=== PATIENT | female | born 1980 | race Two or more races ===

== ENCOUNTER 2024-05-04 00:12 | Inpatient (IN) | payer SELFPAY ==
[2024-05-04] MEDS ORDERED: Calcium Carbonate 500 MG ChewTAB PO PRN (01:48)
[2024-05-04] MEDS ORDERED: Ondansetron ODT 4 MG TAB PO PRN (01:48)
[2024-05-04] MEDS ORDERED: Acetaminophen 650 MG Suppository PR PRN (01:48)
[2024-05-04] MEDS: Lactated Ringer's 1,000 ML IV SCH (02:29)
[2024-05-04 03:03] VITALS: BMI 25.7
[2024-05-04 03:56] LABS: Pregnancy Test - Urine (BHCG) Negative (Negative); Pregu Control Background? CLEAR/WHITE (CLR/WHITE); Pregu Control Bar Appear? YES (CONTROL BAR); Specific Gravity 1.009 (1.002-1.036)
[2024-05-04 04:13] LABS: Hematocrit 31.7 % (36.0-47.0); Hemoglobin 11.4 g/dL (12.0-16.0); Mean Corpuscular Hemoglobin 32.2 pg (27.0-31.0); Mean Corpuscular Volume 89.5 fL (78.0-98.0); Mean Platelet Volume 12.3 fL (7.4-10.4); Platelet Count 40 10x3/uL (130-400); RBC Distribution Width 11.5 % (11.5-14.5); Red Blood Cell (RBC) Count 3.54 mill/uL (4.20-5.40)
[2024-05-04] MEDS: Acetaminophen 325 MG TAB PO PRN (04:25)
[2024-05-04 04:30] LABS: Lactic Acid 2.22 mmol/L (0.50-2.20)
[2024-05-04 04:43] LABS: Anion Gap 15 mmol/L (10-20); Chloride 101 mmol/L (98-107); Potassium 3.7 mmol/L (3.5-5.1); Sodium 129 mmol/L (136-145)
[2024-05-04 04:48] LABS: ALT (SGPT) 51 U/L (Less than 34); AST (SGOT) 92 U/L (11-34); Albumin 1.9 g/dL (3.1-4.5); Alkaline Phosphatase 229 U/L (40-110); BUN (Urea Nitrogen) 49 mg/dL (7.0-18.7); Bilirubin, Total 1.6 mg/dL (0.3-1.2); Calc. Creatinine Clearance 31 mL/min (70-130); Calcium 6.5 mg/dL (7.8-10.44); Carbon Dioxide 18 mmol/L (22-29); Estimated GFR 24; Globulin 2.6 g/dL (2.4-3.5); Glucose 112 mg/dL (70-105); Protein, Total 4.5 g/dL (6.0-8.3)
[2024-05-04 04:50] LABS: HBsAg Index 0.22 S/CO (0-0.99); Hep A IgM AB NONREACTIVE (NonReactive); Hep A IgM S/CO 0.23 S/CO (0-0.79); Hep B Surf Ag NONREACTIVE S/CO (NonReactive); Hep C IgG Ab NONREACTIVE S/CO (NonReactive); Hep C Index 0.07 S/CO (0-0.79); Hepatitis B Core IgM Abs NONREACTIVE S/CO (NonReactive)
[2024-05-04 05:12] LABS: Band 7 % (5-11); Lymphocytes 2 % (21-51); Neutrophil 91 % (42-75); Platelet Adequacy Comment Platelets Decreased; RBC Morphology Within Normal Limits; Smudge Cells 14.1 %
[2024-05-04] MEDS: Albumin 25% 25 GM (100 mL) BOT IVPB SCH ×2 (05:14)
[2024-05-04] MEDS ORDERED: Electrolyte Replacement Protocol 1 EACH FS ONE (08:27)
[2024-05-04] MEDS ORDERED: Electrolyte Replacement Protocol FS PRN (08:45)
[2024-05-04] MEDS: Sodium Chloride 0.9% 1,000 ML IV SCH ×2 (09:11→20:33)
[2024-05-04] MEDS: Cefepime 1 GM in Sodium Chloride 0.9% 100 ML IVPB SCH (09:19)
[2024-05-04] MEDS: busPIRone HCl 5 MG TAB PO SCH (09:27)
[2024-05-04] MEDS: Famotidine 20 MG TAB PO SCH (09:27)
[2024-05-04] MEDS: Famotidine/PF 20 mg/2ml Vial SLOW IVP SCH (09:28)
[2024-05-04 10:29] LABS: Bilirubin Negative (Negative); Blood, Urine 2+ (Negative); Clarity Clear (Clear); Glucose, Urine (Dipstick) Normal (Negative); Ketone, Urine Negative (Negative); Leukocyte Negative Leu/uL (Negative); Nitrite Negative (Negative); Protein, Urine (Dipstick) 20 mg/dL (Neg-Trace); RBC/HPF 0-3 HPF (0-3); Specific Gravity, Urine 1.008 (1.002-1.036); Squamous Epithelial None Seen HPF (0-3); Urobilinogen Normal mg/dL (Less than 2); pH, Urine 5.5 (5.0-9.0)
[2024-05-04 10:32] LABS: Bacteria/HPF 1+ HPF (None Seen)
[2024-05-04] MEDS: CALCIUM GLUC 1 GM/NS 50 ML 1 GM in Premix 1 BAG IVPB SCH (12:46)
[2024-05-04 18:05] LABS: Lactic Acid 2.87 mmol/L (0.50-2.20)
[2024-05-04] MEDS ORDERED: Heparin 5,000 UNITS/ML VIAL SC SCH (21:00)
[2024-05-05 04:56] LABS: Hematocrit 26.3 % (36.0-47.0); Hemoglobin 9.4 g/dL (12.0-16.0); Mean Corpuscular HGB CONC 35.7 g/dL (32.0-36.0); Mean Corpuscular Hemoglobin 32.2 pg (27.0-31.0); Mean Corpuscular Volume 90.1 fL (78.0-98.0); Mean Platelet Volume 11.7 fL (7.4-10.4); Platelet Count 30 10x3/uL (130-400); RBC Distribution Width 12.1 % (11.5-14.5); Red Blood Cell (RBC) Count 2.92 mill/uL (4.20-5.40)
[2024-05-05 05:14] LABS: Anion Gap 11 mmol/L (10-20); BUN (Urea Nitrogen) 26 mg/dL (7.0-18.7); Calc. Creatinine Clearance 69 mL/min (70-130); Calcium 7.1 mg/dL (7.8-10.44); Carbon Dioxide 17 mmol/L (22-29); Chloride 107 mmol/L (98-107); Estimated GFR 64; Glucose 115 mg/dL (70-105); Potassium 3.3 mmol/L (3.5-5.1); Sodium 132 mmol/L (136-145)
[2024-05-05 05:31] LABS: HBsAg Index 0.18 S/CO (0-0.99); Hep B Surf Ag NONREACTIVE S/CO (NonReactive); Hep C IgG Ab NONREACTIVE S/CO (NonReactive); Hep C Index 0.29 S/CO (0-0.79)
[2024-05-05 05:36] LABS: Band 1 % (5-11); Large Platelets 2.9 % (0-5); Lymphocytes 9 % (21-51); Monocytes 2 % (0-10); Neutrophil 88 % (42-75); Platelet Adequacy Comment Platelets Decreased; Polychromasia SLIGHT = 2-3 cells HPF (0-2); Smudge Cells 16.7 %
[2024-05-05] MEDS: Melatonin 3 MG TAB PO SCH (05:37)
[2024-05-05] MEDS: Benzonatate 100 MG CAP PO PRN (09:00)
[2024-05-05] MEDS: guaiFENesin ER 600 MG TAB PO SCH (09:00)
[2024-05-05] MEDS: Potassium Chloride 20 MEQ TAB PO SCH (09:00)
[2024-05-05] MEDS: 1/2 NS w/Potassium 20 mEq 1,000 ML IV SCH (09:02)
[2024-05-05] MEDS: FLU (Fluarix Triv) TS24-25(6MOS UP)/PF 45 MCG/0.5 ML Syringe IM ONE (09:07)
[2024-05-05 13:54] LABS: Potassium 3.9 mmol/L (3.5-5.1)
[2024-05-05] MEDS: guaiFENesin/Codeine 200 mg/20 mg 10 ml Cup PO PRN (14:07)
[2024-05-05] MEDS ORDERED: Iopamidol-370 76% 500 ML MDV (1 ML CHARGE) ONE (14:12)
[2024-05-05] MEDS: Cefepime 1 GM in Sodium Chloride 0.9% 100 ML IVPB SCH (20:48)
[2024-05-06 05:05] LABS: Hematocrit 29.3 % (36.0-47.0); Hemoglobin 10.3 g/dL (12.0-16.0); Mean Corpuscular HGB CONC 35.2 g/dL (32.0-36.0); Mean Corpuscular Hemoglobin 32.3 pg (27.0-31.0); Mean Corpuscular Volume 91.8 fL (78.0-98.0); Mean Platelet Volume 13.9 fL (7.4-10.4); Platelet Count 30 10x3/uL (130-400); RBC Distribution Width 12.5 % (11.5-14.5); Red Blood Cell (RBC) Count 3.19 mill/uL (4.20-5.40)
[2024-05-06 05:32] LABS: Band 2 % (5-11); Eosinophils 1 % (0-10); Lymphocytes 3 % (21-51); Monocytes 1 % (0-10); Neutrophil 92 % (42-75); Platelet Adequacy Comment Significant Decrease; RBC Morphology Within Normal Limits; Reactive Lymphocytes 1 % (0-10)
[2024-05-06 05:39] LABS: Anion Gap 11 mmol/L (10-20); BUN (Urea Nitrogen) 18 mg/dL (7.0-18.7); Calc. Creatinine Clearance 95 mL/min (70-130); Calcium 7.5 mg/dL (7.8-10.44); Carbon Dioxide 18 mmol/L (22-29); Chloride 108 mmol/L (98-107); Estimated GFR 94; Glucose 118 mg/dL (70-105); Potassium 3.8 mmol/L (3.5-5.1); Sodium 133 mmol/L (136-145)
[2024-05-06] MEDS: Lactated Ringer's 500 ML IV SCH (07:22)
[2024-05-06] MEDS: Furosemide 40 MG (4 mL) VIAL SLOW IVP SCH (08:46)
[2024-05-06] MEDS ORDERED: Famotidine 20 MG TAB PO SCH (09:00)
[2024-05-06] MEDS: Pantoprazole 40 MG VIAL IVP SCH (09:18)
[2024-05-06] MEDS: Pantoprazole 40 MG DR.TAB PO SCH (09:18)
[2024-05-06 16:09] LABS: ALT (SGPT) 55 U/L (Less than 34); AST (SGOT) 153 U/L (11-34); Albumin 2.8 g/dL (3.1-4.5); Alkaline Phosphatase 244 U/L (40-110); Bilirubin, Direct 1.4 mg/dL (0.1-0.3); Bilirubin, Total 2.2 mg/dL (0.3-1.2); Protein, Total 5.8 g/dL (6.0-8.3)
[2024-05-06 16:18] LABS: CRP,High Sensitivity (Inhouse) 17.38 mg/dL (< or = 0.5)
[2024-05-06 16:40] LABS: HIV (1/2) Antibody/Antigen NONREACTIVE (NonReactive); HIV 1/2 INDEX 0.07 S/CO (<1.00)
[2024-05-06 17:14] LABS: Ferritin 5788.57 ng/mL (10-291)
[2024-05-07 06:11] LABS: Hematocrit 29.2 % (36.0-47.0); Hemoglobin 10.1 g/dL (12.0-16.0); Mean Corpuscular HGB CONC 34.6 g/dL (32.0-36.0); Mean Corpuscular Hemoglobin 31.8 pg (27.0-31.0); Mean Corpuscular Volume 91.8 fL (78.0-98.0); Mean Platelet Volume 13.8 fL (7.4-10.4); Platelet Count 55 10x3/uL (130-400); RBC Distribution Width 12.9 % (11.5-14.5); Red Blood Cell (RBC) Count 3.18 mill/uL (4.20-5.40)
[2024-05-07 06:20] LABS: ALT (SGPT) 55 U/L (Less than 34); AST (SGOT) 146 U/L (11-34); Albumin 2.7 g/dL (3.1-4.5); Alkaline Phosphatase 229 U/L (40-110); Anion Gap 13 mmol/L (10-20); BUN (Urea Nitrogen) 15 mg/dL (7.0-18.7); Calc. Creatinine Clearance 94 mL/min (70-130); Calcium 7.6 mg/dL (7.8-10.44); Carbon Dioxide 19 mmol/L (22-29); Chloride 105 mmol/L (98-107); Estimated GFR 93; Globulin 3.2 g/dL (2.4-3.5); Glucose 122 mg/dL (70-105); Potassium 3.5 mmol/L (3.5-5.1); Protein, Total 5.9 g/dL (6.0-8.3); Sodium 133 mmol/L (136-145)
[2024-05-07 07:41] LABS: Anisocytosis SLIGHT = 6-15 cells HPF (0-5); Band 1 % (5-11); Burr Cells SLIGHT = 2-5 cells HPF (0-1); Lymphocytes 6 % (21-51); Macrocytosis SLIGHT = 6-15 cells HPF (0-5); Monocytes 3 % (0-10); Neutrophil 88 % (42-75); Platelet Adequacy Comment Platelets Decreased; Polychromasia SLIGHT = 2-3 cells HPF (0-2); Reactive Lymphocytes 2 % (0-10)
[2024-05-07] MEDS: Potassium Chloride 20 MEQ TAB PO SCH (10:54)
[2024-05-07 11:10] LABS: Syphilis Antibody Nonreactive (Nonreactive); Syphilis Antibody Index 0.17 S/CO (<1.00 Non-Reactive)
[2024-05-07] MEDS: Doxycycline 100 MG CAP PO SCH ×2 (12:26→20:32)
[2024-05-07] MEDS: Cefepime 2 GM in Sodium Chloride 0.9% 100 ML IVPB SCH (15:23)
[2024-05-07 15:27] LABS: INR-International Normal Ratio 1.1; PTT 35.4 sec (22.9-36.1); Prothrombin Time 14.5 sec (12.0-14.7)
[2024-05-08 05:11] LABS: Hematocrit 26.1 % (36.0-47.0); Hemoglobin 9.1 g/dL (12.0-16.0); Mean Corpuscular HGB CONC 34.9 g/dL (32.0-36.0); Mean Corpuscular Hemoglobin 32.4 pg (27.0-31.0); Mean Corpuscular Volume 92.9 fL (78.0-98.0); Mean Platelet Volume 13.3 fL (7.4-10.4); Platelet Count 98 10x3/uL (130-400); RBC Distribution Width 13.2 % (11.5-14.5); Red Blood Cell (RBC) Count 2.81 mill/uL (4.20-5.40)
[2024-05-08 05:12] LABS: EBV VCA IgM <36.0 U/mL (0.0-35.9); Nuclear AG IgG (EBNA) AB >600.0 U/mL (0.0-17.9)
[2024-05-08 05:46] LABS: ALT (SGPT) 54 U/L (Less than 34); AST (SGOT) 127 U/L (11-34); Albumin 2.4 g/dL (3.1-4.5); Alkaline Phosphatase 230 U/L (40-110); Anion Gap 11 mmol/L (10-20); BUN (Urea Nitrogen) 14 mg/dL (7.0-18.7); Bilirubin, Total 1.5 mg/dL (0.3-1.2); Calc. Creatinine Clearance 98 mL/min (70-130); Calcium 7.4 mg/dL (7.8-10.44); Carbon Dioxide 20 mmol/L (22-29); Chloride 109 mmol/L (98-107); Estimated GFR 97; Globulin 3.4 g/dL (2.4-3.5); Glucose 103 mg/dL (70-105); Protein, Total 5.8 g/dL (6.0-8.3); Sodium 136 mmol/L (136-145)
[2024-05-08 05:59] LABS: Band 1 % (5-11); Lymphocytes 7 % (21-51); Monocytes 6 % (0-10); Neutrophil 85 % (42-75); Platelet Adequacy Comment Platelets Decreased; RBC Morphology Within Normal Limits; Reactive Lymphocytes 1 % (0-10)
[2024-05-08] MEDS: Ondansetron PF 4 MG/2 ML Vial IVP PRN (06:25)
[2024-05-08 11:37] LABS: ANA Symphony (Qualitative) Negative (Negative); ANA Symphony (Quantitative) 0.2 Ratio (< 0.7 Negative); EliA RAS New Method **** NEW METHOD ****; Rheumatoid Factor IgM Antibody 9.4 IU/mL (<3.5 Negative)
[2024-05-08] MEDS: predniSONE 20 MG TAB PO SCH (15:43)
[2024-05-09 05:37] LABS: Chloride 110 mmol/L (98-107); Potassium 4.2 mmol/L (3.5-5.1); Sodium 137 mmol/L (136-145)
[2024-05-09 05:38] LABS: Albumin 2.5 g/dL (3.1-4.5); Calcium 7.9 mg/dL (7.8-10.44)
[2024-05-09 05:39] LABS: Globulin 3.5 g/dL (2.4-3.5); Glucose 126 mg/dL (70-105)
[2024-05-09 05:40] LABS: Anion Gap 10 mmol/L (10-20); Carbon Dioxide 21 mmol/L (22-29)
[2024-05-09 05:41] LABS: Alkaline Phosphatase 223 U/L (40-110)
[2024-05-09 05:42] LABS: Calc. Creatinine Clearance 132 mL/min (70-130); Estimated GFR 116
[2024-05-09 05:43] LABS: BUN (Urea Nitrogen) 13 mg/dL (7.0-18.7)
[2024-05-09 05:44] LABS: Hematocrit 25.5 % (36.0-47.0); Hemoglobin 8.6 g/dL (12.0-16.0); Mean Corpuscular HGB CONC 33.7 g/dL (32.0-36.0); Mean Corpuscular Hemoglobin 31.9 pg (27.0-31.0); Mean Corpuscular Volume 94.4 fL (78.0-98.0); Mean Platelet Volume 12.3 fL (7.4-10.4); Platelet Count 156 10x3/uL (130-400); RBC Distribution Width 13.2 % (11.5-14.5)
[2024-05-09 05:45] LABS: ALT (SGPT) 57 U/L (Less than 34); AST (SGOT) 102 U/L (11-34)
[2024-05-09 06:13] LABS: CMV IgM AB Less than 30.0 AU/mL (0.0-29.9)
[2024-05-09 07:39] LABS: Anisocytosis SLIGHT = 6-15 cells HPF (0-5); Band 1 % (5-11); Large Platelets 8.9 % (0-5); Lymphocytes 9 % (21-51); Monocytes 3 % (0-10); Neutrophil 86 % (42-75); Platelet Adequacy Comment Platelets Normal; Reactive Lymphocytes 1 % (0-10); Smudge Cells 14.9 %
[2024-05-09] MEDS: predniSONE 20 MG TAB PO SCH (08:13)
[2024-05-09 12:12] LABS: West Nile Virus IgG Ab Negative (Negative); West Nile Virus IgM Ab Negative (Negative)
[2024-05-09 16:29] VITALS: BP 126/76; TEMP 97.7
== END 2024-05-09 18:04 | disposition home or self-care (01) | DRG 871 ==
LOC: 2NO 01:28
PROVIDERS: ADMIT Student in an Organized Health Care Education/Training Program; ATTEND Internal Medicine
PROC: 30233J1 Transfusion of Nonautologous Serum Albumin into Peripheral Vein, Percutaneous Approach (ICD-10-PCS; principal; 2024-05-04)
PROC: 3E03329 Introduction of Other Anti-infective into Peripheral Vein, Percutaneous Approach (ICD-10-PCS; 2024-05-04)
DX: A41.9 Sepsis, unspecified organism (principal); J18.9 Pneumonia, unspecified organism; J96.01 Acute respiratory failure with hypoxia; N17.9 Acute kidney failure, unspecified; E87.1 Hypo-osmolality and hyponatremia; N39.0 Urinary tract infection, site not specified; D64.9 Anemia, unspecified; D69.6 Thrombocytopenia, unspecified; E88.09 Other disorders of plasma-protein metabolism, not elsewhere classified; F43.12 Post-traumatic stress disorder, chronic; F41.9 Anxiety disorder, unspecified; F10.90 Alcohol use, unspecified, uncomplicated; R74.01 Elevation of levels of liver transaminase levels; F42.9 Obsessive-compulsive disorder, unspecified; Z72.0 Tobacco use
CPT/HCPCS: 36415; 71045; 71275; 74176; 76770; 80048; 80053; 80074; 80076; 81003; 81015; 81025; 82550; 82728; 83520; 83605; 84145; 85025; 85379; 85384; 85610; 85730; 86038; 86141; 86225; 86480; 86644; 86645; 86664; 86665; 86780; 86788; 86789; 86803; 87040; 87086; 87340; 87389; 87633; 87798; 93306; 93970; J0613; J0692; J1940; J2405; J3480; J7030; J7120; J7512; P9047; Q9967